=== PATIENT | female | born 1995 | race Caucasian/White ===

== ENCOUNTER 2024-11-14 21:08 | Emergency (ER) | payer SELFPAY ==
[~2024-11-14] VITALS: Ht 167.6 cm; Wt 109.0 kg
[2024-11-14 21:21] VITALS: O2SAT 100
[2024-11-14] MEDS: PREDNISONE 20MG TABLET PO ONE (21:52)
[2024-11-14] MEDS ORDERED: P50 MT (21:53)
[2024-11-14 22:11] VITALS: BP 124/73; PULSE 68; RESP 18; TEMP 36.7; O2SAT 100
== END 2024-11-14 22:14 | disposition home or self-care (01) ==
LOC: ER 21:08
DX: R21 Rash and other nonspecific skin eruption (principal); Z79.899 Other long term (current) drug therapy
CPT/HCPCS: 99283; J7512